=== PATIENT | female | born 1995 | race Caucasian/White ===

== ENCOUNTER 2016-07-12 12:14 | Emergency (ER) | payer OTHER ==
[2016-07-12 12:23] VITALS: RESP 16
--- NOTE | 2016-07-12 13:21 | CPEKG ---
Heart Rate: 72 RR Interval: 833 P-R Interval: 176 QRSD Interval: 84 QT Interval: 392 QTC Interval: 430 P [place]: 44 QRS [place]: 80 T Wave [place]: 49 EKG Severity - NORMAL ECG - EKG Impression: SINUS RHYTHM Electronically Signed By: Tawanda Huffman 16-Jul-2016 08:55:42
[2016-07-12 13:30] LABS: % IMMATURE GRANULYOCYTES 0.4 % (0.0-1.1); ABSOLUTE IMMATURE GRANULOCYTES 0.02 10^3/uL (0.00-0.10); ADD DIFF? NO; ADD MORPH? NO; ADD SCAN? NO; ATYPICAL LYMPHOCYTE FLAG 30 (0-99); FRAGMENT RBC FLAG 0 (0-99); HEMATOCRIT 40.3 % (38.0-47.0); HEMOGLOBIN 13.8 g/dL (12.6-16.3); LEFT SHIFT FLG 0 (0-99); LIPEMIA HEMOLYSIS FLAG 90 (0-99); MEAN CELL HEMOGLOBIN 30.9 pg (27.9-34.1); MEAN CELL HEMOGLOBIN CONCENTR. 34.2 g/dL (32.4-36.7); MEAN CELL VOLUME 90.4 fL (81.5-99.8); MEAN PLATELET VOLUME 9.1 fL (8.7-11.7); PLATELET CLUMPS FLAG 0 (0-99); PLATELET COUNT 251 10^3/uL (150-400); RED BLOOD CELL COUNT 4.46 10^6/uL (4.18-5.33); RED CELL DISTRIBUTION WIDTH 11.9 % (11.5-15.2)
--- NOTE | 2016-07-12 13:38 | EDPHY ---
H & P Stated Complaint: right ant cp, feels like PE had in 2016. worse deep breathing Source: Patient Exam Limitations: No limitations - Personal History LMP (Females 10-55): 8-14 Days Ago Current Tetanus/Diphtheria Vaccine: Unsure Current Tetanus Diphtheria and Acellular Pertussis (TDAP): Unsure - Medical/Surgical History Hx Asthma: No Hx Chronic Respiratory Disease: No Hx Diabetes: No Hx Cardiac Disease: No Hx Renal Disease: No Hx Cirrhosis: No Hx Alcoholism: No Hx HIV/AIDS: No Hx Splenectomy or Spleen Trauma: No Other PMH: CONCUSSIONS/BACK INJ/FX R LEG. PE 05/2016 not on coumadin currently - Social History Smoking Status: Never smoked Time Seen by Provider: 07/12/16 13:16 HPI/ROS: CHIEF COMPLAINT: Chest pain HISTORY OF PRESENT ILLNESS: 21-year-old female presents emergency department complaining substernal chest pain that started last night while watching TV. Patient reports the pain continues today, it is constant, worse with movement and worse with a deep breath. She denies any associated symptoms of nausea, dizziness, shortness of breath, no numbness or tingling down her arms. 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 Patient was on Coumadin after this and has been off of Coumadin for 8 months. Patient denies recent cough or cold, no fevers or nasal congestion. She denies neck pain. REVIEW OF SYSTEMS: A comprehensive 10 point review of systems is otherwise negative aside from elements mentioned in the history of present illness. (Karina Presley) - Physical Exam Exam: Physical Exam Gen: Alert and Oriented, NAD HEENT: PERRL, moist mucous membranes NECK: no meningismus CV: regular rate and regular rhythm Chest wall: Mild chest wall tenderness to palpation over sternum PULM: CTAB, no wheezes ABDOMEN: soft, non tender to palpation, BS present BACK: No CVA tenderness NEURO: Neurologically grossly intact EXTREMITIES: normal appearing, 2+ radial pulses bilateral arms SKIN: no rash or break in skin on exposed skin PSYCH: answers questions appropriately. (Karina Presley) Constitutional: Initial Vital Signs Temperature (C) 36.7 C 07/12/16 12:20 Heart Rate 89 07/12/16 12:20 Respiratory Rate 16 01/21/17 12:20 Blood Pressure 93/57 L 07/12/16 12:20 O2 Sat (%) 98 07/12/16 12:20 O2 Delivery Mode Room Air Allergies/Adverse Reactions: No Known Allergies Allergy (Unverified 03/28/15 17:56) Home Medications: Medication Instructions Recorded Microgestin 03/28/15 Medical Decision Making - Diagnostics EKG Interpretation: EKG shows normal sinus rhythm, rate 72, normal axis, good R-wave progression, no ST or T-wave abnormalities no S1 q3 T3 (Karina Presley) Imaging: Chest x-ray independently reviewed by me- Normal (Karina Presley) ED Course/Re-evaluation: The patient was evaluated and managed by the physician's health education assistant. My cosignature indicates that I reviewed the chart and I agree with the findings and plan of care as documented. I am the secondary supervising physician. ( Licha Tong) IV established, CBC, chemistry panel and D-dimer obtained, chest x-ray ordered. EKG obtained showing normal sinus rhythm. 2pm-lab called with a glucose of 39. Patient is asymptomatic, denies dizziness , lightheadedness, she is awake, alert and oriented. She has been given apple juice to drink, I will repeat an I-STAT. Chest x-ray is normal. D-dimer is negative. Patient is given 600 mg of ibuprofen, I think she likely has a costochondritis. I will treat the patient with NSAIDs. She is to take 600 mg of ibuprofen every 8 hours with food for 5 days, she agrees to follow up with Abraham huertas for pain that continues. She is given return precautions for any worsening symptoms. I discussed her low blood sugar with her, I recommended she be seen by 1 Jagjit next week for repeat chemistry panel. She has been given return precautions for dizziness, lightheadedness, confusion, any other new symptoms or concerns. 239pm- repeat glucose 82. (Karina Presley) Differential Diagnosis: Chest pain including but not limited to myocardial ischemia, pulmonary embolus, chest wall pain, pleural inflammation and pulmonary infectious causes. (Karina Presley) - Data Points Laboratory Results: Laboratory Results 07/12/16 13:20 07/12/16 13:20 07/12/16 07/12/16 14:28 13:20 WBC 5.41 10^3/uL (3.80-9.50) RBC 4.46 10^6/uL (4.18-5.33) Hgb 13.8 g/dL (12.6-16.3) Hct 40.3 % (38.0-47.0) MCV 90.4 fL (81.5-99.8) MCH 30.9 pg (27.9-34.1) MCHC 34.2 g/dL (32.4-36.7) RDW 11.9 % (11.5-15.2) Plt Count 251 10^3/uL (150-400) MPV 9.1 fL (8.7-11.7) Neut % (Auto) 41.0 % (39.3-74.2) Lymph % (Auto) 49.0 H % (15.0-45.0) Rains % (Auto) 3.9 L % (4.5-13.0) Eos % (Auto) 4.6 % (0.6-7.6) Baso % (Auto) 1.1 % (0.3-1.7) Nucleat RBC Rel Count 0.0 % (0.0-0.2) Absolute Neuts (auto) 2.22 10^3/uL (1.70-6.50) Absolute Lymphs (auto) 2.65 10^3/uL (1.00-3.00) Absolute Monos (auto) 0.21 L 10^3/uL (0.30-0.80) Absolute Eos (auto) 0.25 10^3/uL (0.03-0.40) Absolute Basos (auto) 0.06 10^3/uL (0.02-0.10) Absolute Nucleated RBC 0.00 10^3/uL (0-0.01) Immature Gran % 0.4 % (0.0-1.1) Immature Gran # 0.02 10^3/uL (0.00-0.10) D-Dimer 0.36 ug/mLFEU (0.00-0.50) Sodium 142 mEq/L (134-144) Potassium 4.2 mEq/L (3.5-5.2) Chloride 105 mEq/L (97-110) Carbon Dioxide 26 mEq/l (22-31) Anion Gap 11 mEq/L (8-16) BUN 18 mg/dL (7-23) Creatinine 0.8 mg/dL (0.6-1.0) Estimated GFR > 60 Glucose 39 L* mg/dL (70-100) POC Glucose 82 mg/dL (70-100) Calcium 9.2 mg/dL (8.5-10.4) Beta HCG, Qual NEGATIVE Medications Given: Discontinued Medications Ibuprofen (Motrin) 600 mg PO EDNOW ONE Stop: 07/12/16 14:27 Last Admin: 07/12/16 14:40 Dose: 600 mg Point of Care Test Results: 07/12/16 14:28 POC Glucose 82 Departure - Departure Disposition: Home, Routine, Self-Care Clinical Impression: Costochondritis, acute Condition: Good Instructions: Costochondritis (ED) Additional Instructions: Take 600 mg of ibuprofen every 8 hours with food for 3-5 days. Ice to your chest. Follow-up with your primary care doctor for symptoms that are not improving in 3-5 days, return to the emergency department for worsening symptoms. Your blood sugar was low today. Follow-up with your primary care doctor for re- evaluation and repeat blood work. Return to the emergency department for any dizziness, lightheadedness, confusion. Eat frequent meals until you follow up. Referrals: SHAYLA Cast,. [Primary Care Provider] - As per Instructions
[2016-07-12 13:56] LABS: ANION GAP 11 mEq/L (8-16); CALCIUM 9.2 mg/dL (8.5-10.4); CARBON DIOXIDE 26 mEq/l (22-31); CHLORIDE 105 mEq/L (97-110); CREATININE 0.8 mg/dL (0.6-1.0); GLOMERULAR FILTRATION RATE > 60; POTASSIUM 4.2 mEq/L (3.5-5.2); SODIUM 142 mEq/L (134-144)
[2016-07-12 14:02] LABS: GLUCOSE 39 mg/dL (70-100)
[2016-07-12] MEDS ORDERED: IBUPROFEN 600 MG TAB PO ONE (14:26)
--- NOTE | 2016-07-12 14:39 | DX ---
PA and lateral chest History: Pain. Comparison: CT angio chest March 28, 2015. Findings: The lungs are clear. There is no pneumothorax or pleural effusion. The heart and pulmona ry vasculature are normal right first rib resection is noted. Impression: No acute findings in the chest.
[2016-07-12 15:00] VITALS: BP 108/62; PULSE 68; TEMP 97.9; O2SAT 95
== END 2016-07-12 14:59 | disposition home or self-care (01) ==
DX: M94.0 Chondrocostal junction syndrome [Tietze] (principal)
CPT/HCPCS: 82947-QW